=== PATIENT | male | born 1965 | race Caucasian/White ===

== ENCOUNTER 2023-08-15 06:47 | Day surgery (SDC) | payer BC ==
[2023-08-12 08:33] VITALS: BP 141/83
[~2023-08-15] VITALS: Ht 180.3 cm; Wt 113.0 kg
[~2023-08-15 06:47] MED LIST: JARDIANCE10 MG PO; LISINOPRIL10 MG PO; METFORMIN HCL500 M2 PO; SILDENAFIL CITR50 MG PO
[2023-08-15 07:07] VITALS: BP 164/72
--- NOTE | 2023-08-15 07:45 | NUR ---
PT ADMITTED TO ANXIETY, STATING THIS IS HIS FIRST EVER SURGERY. IN ROOM. I EXERCISED MINISTRY OF PRESENCE PT TALKED OF ANXIETY AND HEALTH HISTORY. CONSENTED TO PRAYER. PRAYED FOR SUCCESSFUL PROCEDURE AND RELEIF FROM ANXIETY.
--- NOTE | 2023-08-15 08:57 | NUR ---
08/15/23 0857 Carmelina,Yeny 0890 PT ARRIVED TO PACU ON 4L VIA NC, PT ASLEEP AND SMALL AMOUNT OF SNORING NOTED.
[2023-08-15 09:16] VITALS: BP 111/55
--- NOTE | 2023-08-15 11:02 | OR ---
[facility] [address], [place] [address] Signed DATE OF OPERATION: 08/15/2023 SURGEON: Delaney Latham MD PREOPERATIVE DIAGNOSIS: Screening. POSTOPERATIVE DIAGNOSIS: Unremarkable colonoscopy. PROCEDURE: Colonoscopy without biopsy. ESTIMATED BLOOD LOSS: None. INDICATIONS: Dominik is a 58-year-old gentleman, who had been asked to see me for a screening colonoscopy. He has no lower GI complaints. He has no family history of colon cancer or polyps. In the office, I had given him a pamphlet on colonoscopy. He understands the nature of the test. There is risk including, but not limited to gas bloating, crampy abdominal pain, bleeding, perforation requiring surgery, and missed diagnosis. We also reviewed the written instructions for the bowel prep line by line. Also because of his diabetes and his daily alcohol use, we asked for monitored anesthesia care with propofol infusion. He had expressed understanding and wished to proceed. PROCEDURE NOTE: Dominik was taken into our endoscopy suite and placed in the left lateral decubitus position. He was given monitored anesthesia care with propofol infusion per our nurse pulmonologist/intensivist. A digital rectal exam was performed. He had no external hemorrhoids. He had good sphincter tone. There were no masses. His prostate is starting to get indurated and large. The left is a little more prominent than the right. The adult colonoscope was introduced and advanced quite readily up into the cecum itself without difficulty. His prep was quite excellent. The scope was then slowly withdrawn. We could easily see the appendiceal orifice and the ileocecal valve. We took several pictures throughout for photodocumentation. There was no diverticulosis. There were no polyps. Once in the rectum, the scope was then retroflexed and there was no additional pathology noted above the anal canal. After this, the gas was suctioned out and the colonoscope removed. Dominik tolerated the procedure quite well. Electronically Signed By: DELANEY LATHAM MD 08/15/23 1102 PATIENT NAME: DOMINIK LARA OPERATIVE REPORT DATE OF : 65 REPORT #: [id number] PHYSICIAN: DELANEY LATHAM MD PCP: MARGARET PHILLIPS PA-C REPORT IS CONFIDENTIAL AND NOT TO BE RELEASED WITHOUT AUTHORIZATION [address] [address] Signed RECOMMENDATIONS: Dominik can return in 10 years for repeat screening colonoscopy. Delaney Latham MD ALB/MODL /[id number] cc: MD Margaret Elmore PA-C Copies: DELANEY LATHAM MD, CHLOE K PA-C ~ Electronically Signed By: DELANEY LATAHM MD 08/15/23 1102 PATIENT NAME: DOMINIK LARA OPERATIVE REPORT DATE OF : 65 REPORT #: [id number] PHYSICIAN: DELANEY LATHAM MD PCP: MARGARET PHILLIPS PA-C REPORT IS CONFIDENTIAL AND NOT TO BE RELEASED WITHOUT AUTHORIZATION
== END 2023-08-15 09:39 | disposition home or self-care (01) ==
LOC: OPS 06:47 → DS 06:47 → OPS 08:15 → DS 11:45
PROVIDERS: ATTEND Colon & Rectal Surgery
PROC: 0DJD8ZZ Inspection of Lower Intestinal Tract, Via Natural or Artificial Opening Endoscopic (ICD-10-PCS; principal; 2023-08-15 08:15)
DX: Z12.11 Encounter for screening for malignant neoplasm of colon (principal); E11.9 Type 2 diabetes mellitus without complications; E66.9 Obesity, unspecified; E78.5 Hyperlipidemia, unspecified; Z72.89 Other problems related to lifestyle; Z68.34 Body mass index [BMI] 34.0-34.9, adult; Z79.84 Long term (current) use of oral hypoglycemic drugs
CPT/HCPCS: 00812; J2001; J2704; J7121